=== PATIENT | male | born 1985 | race Caucasian/White ===

== ENCOUNTER 2016-11-25 14:37 | Emergency (ER) | payer SELFPAY ==
[~2016-11-25] VITALS: Ht 182.9 cm; Wt 79.5 kg
[~2016-11-25 14:37] MED LIST: NO HOME MEDICATIONS; NORCO 325 MG-51 TAB PO
[2016-11-25 14:42] VITALS: TEMP 98.2
[2016-11-25 16:26] LABS: BASO # 0.1 (0.0-0.2); BASO % 0.9 % (0.0-2.0); EOS # 0.1 (0.0-0.7); EOS % 1.6 % (0-4.0); GRAN # 5.1 (1.4-6.5); GRAN % 64.5 % (42.2-75.2); HEMATOCRIT 50.6 % (42.0-52.0); LYMPH # 1.7 (1.2-3.4); LYMPH % 21.4 % (20.0-51.0); MEAN CELL VOLUME 84 fl (80.0-100.0); MEAN CORPUSCULAR HEMOGLOBIN 30 pg (27.0-31.0); MEAN CORPUSCULAR HGB CONC 36 g/dl (33.0-37.0); MEAN PLATELET VOLUME 9.9 fl (7.4-10.4); MONO # 0.9 (0.1-0.6); MONO % 11.2 % (1.7-9.3); PLATELET COUNT 271 K/mm3 (130-400); RED BLOOD COUNT 6.02 M/mm3 (4.20-5.60); REDCELL DISTRIBUTION WIDTH-CV 11.9 % (11.5-14.5); WHITE BLOOD COUNT 7.9 K/mm3 (4.8-10.8)
[2016-11-25 17:00] LABS: HEMOGLOBIN 18.3 g/dl (13.5-18.0)
[2016-11-25 17:40] LABS: ADJUSTED CALCIUM 9.1 mg/dL (8.4-10.2); ALANINE AMINOTRANSFERASE 47 U/L (21-72); ALBUMIN 4.6 gm/dL (3.5-5.0); ALKALINE PHOSPHATASE 77 U/L (50-136); ANION GAP 10 mmol/L (7-16); BILIRUBIN,TOTAL 1.1 mg/dL (0.0-1.0); BLOOD UREA NITROGEN 13 mg/dL (9-20); CALCIUM 9.6 mg/dL (8.4-10.2); CARBON DIOXIDE 27 mmol/L (22-30); CHLORIDE 103 mmol/L (98-107); GLUCOSE 79 mg/dL (74-106); LIPASE 120 U/L (23-300); POTASSIUM 4.4 mmol/L (3.4-5.0); SODIUM 139 mmol/L (137-145); TOTAL PROTEIN 7.8 gm/dL (6.4-8.2)
[2016-11-25 17:51] LABS: TROPONIN-I < 0.012 ng/mL (0.000-0.034)
[2016-11-25 18:57] VITALS: BP 104/79; PULSE 84
== END 2016-11-25 18:58 | disposition home or self-care (01) ==
LOC: COL.ER 14:37
PROVIDERS: Physician Assistant
DX: R07.9 Chest pain, unspecified (principal); I48.91 Unspecified atrial fibrillation; F17.210 Nicotine dependence, cigarettes, uncomplicated